=== PATIENT | male | born 1990 | race Caucasian/White ===

== ENCOUNTER 2021-02-16 16:21 | Emergency (ER) | payer OTHER ==
[~2021-02-16] VITALS: Ht 165.1 cm; Wt 68.0 kg
[2021-02-16 17:03] VITALS: BP 134/96
[2021-02-16] MEDS ORDERED: FLUORESCEIN SODIUM 1MG/STRIP LEFTEYE ONE (19:00)
[2021-02-16] MEDS ORDERED: TETRACAINE 0.5% OPHTH DROPS 4ML LEFTEYE ONE (19:00)
[2021-02-16] MEDS ORDERED: TETANUS, DIPHTHERIA, PERTUSSIS VAC/PF 0.5ML (>7YR OLD) IM ONE (19:00)
[2021-02-16] MEDS ORDERED: CIPR2.5D13 LEFTEYE (19:22)
== END 2021-02-16 20:57 | disposition home or self-care (01) ==
LOC: ER 16:21
DX: S05.02XA Injury of conjunctiva and corneal abrasion without foreign body, left eye, initial encounter (principal); R51.9 Headache, unspecified; X58.XXXA Exposure to other specified factors, initial encounter; Y93.89 Activity, other specified; Y92.89 Other specified places as the place of occurrence of the external cause; Y99.8 Other external cause status
CPT/HCPCS: 70486; 90471; 90715; 99284

== ENCOUNTER 2023-09-15 09:42 | Emergency (ER) | payer BC, OTHER ==
[~2023-09-15] VITALS: Ht 172.7 cm; Wt 74.0 kg
[~2023-09-15 09:42] MED LIST: CIPR2.5D20 LEFTEYE
[2023-09-15 09:50] VITALS: BP 142/104; PULSE 116; RESP 20; TEMP 98.6; O2SAT 99
[2023-09-15] MEDS ORDERED: KETOROLAC 60MG/2ML VIAL IM ONE (12:45)
[2023-09-15] MEDS ORDERED: ACETAMINOPHEN 325MG TABLET PO ONE (12:45)
[2023-09-15] MEDS ORDERED: IBUP-2028 MT (18:36)
[2023-09-15] MEDS ORDERED: CYCL5TAB MT (18:36)
== END 2023-09-15 15:09 | disposition left against medical advice (07) ==
LOC: ER 09:42
DX: S80.02XA Contusion of left knee, initial encounter (principal); E11.9 Type 2 diabetes mellitus without complications; V98.8XXA Other specified transport accidents, initial encounter; Y93.89 Activity, other specified; Y92.89 Other specified places as the place of occurrence of the external cause; Y99.8 Other external cause status
CPT/HCPCS: 71045; 73562; 73630; 99284

== ENCOUNTER 2023-09-15 17:34 | Emergency (ER) | payer BC ==
[~2023-09-15] VITALS: Ht 172.7 cm; Wt 74.0 kg
[2023-09-15 17:40] VITALS: O2SAT 100
[2023-09-15 17:43] VITALS: TEMP 98
[2023-09-15] MEDS: KETOROLAC 60MG/2ML VIAL IM ONE (18:34)
[2023-09-15] MEDS ORDERED: CYCL5TAB MT (18:36)
[2023-09-15] MEDS ORDERED: IBUP-2028 MT (18:36)
[2023-09-15 20:18] VITALS: BP 140/75; PULSE 76; RESP 18
== END 2023-09-15 20:20 | disposition home or self-care (01) ==
LOC: ER 17:34
DX: M79.672 Pain in left foot (principal); M25.561 Pain in right knee; E11.9 Type 2 diabetes mellitus without complications
CPT/HCPCS: 73590; 96372; 99283; J1885; Z7610